=== PATIENT | female | born 1970 | race Caucasian/White ===

== ENCOUNTER → 2016-05-14 | Outpatient (CLI) | payer OTHER | LOC: CAT 10:38 | DX: Z13.6 Encounter for screening for cardiovascular disorders (principal) ==

== ENCOUNTER → 2016-06-15 | Outpatient (CLI) | payer BC | LOC: RAD 05-25 01:02 | DX: R92.2 Inconclusive mammogram (principal) ==

== ENCOUNTER → 2017-02-22 | Outpatient (CLI) | payer BC | LOC: RAD 09:42 | DX: R92.8 Other abnormal and inconclusive findings on diagnostic imaging of breast (principal) ==